=== PATIENT | female | born 1995 | race Two or more races ===

== ENCOUNTER 2021-09-01 11:15 | Emergency (ER) | payer OTHER ==
--- OUTSIDE RECORDS SUMMARY | 2021-09-01 11:18 | XMS REPORT | Continuity of Care Document ---
:1995 Author Organization [facility] t Address 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 Allergies, Adverse Reactions, Alerts Allergy Allergy Status Severity Reaction(s) Onset Inactive Treating Comm ents Source Name Type Date Date Clinician NO KNOWN Drug Active Univers ALLERGIE Class ity of S [facility] Social History Social Habit Start Date Stop Date Quantity Comments Source History of Cigarette Smoker Universi ty of tobacco use [facility] Sex Assigned At Universit y of [facility] Exposure to Not sure [place] of SARS-CoV-2 [facility] (event) [place] Tobacco use and 2020-08-11 2020-08-11 Never used Universit y of exposure 00:00:00 00:00:00 [facility] Smoking Status Start Date Stop Date Source Current every day smoker 2020-08-11 00:00:[address] [facility] Medications Ordered Filled Start Stop Current Ordering Indication Dosage Frequency Signature Comments Components Source Medication Medication Date Date Medication? Clinician (SIG) Name Name neomycin-po 2019-09 Yes [id number] 3[drp] Place 3 Univers lymyxin-hyd - Drops in ity of rocortisone 00:00: both ears [place] otic 00 4 (four) Medical solution times Branch daily. amoxicillin 2019-09 2020- No [id number] 1{tbl} Take 1 Univers -clavulanat 10-11 11-30 tablet by it y of e 875-125 00:00: 05:59 [place] per [place] :00 (two) Medical tablet times [place] daily for 7 days. busPIRone 5 2019-09 Yes 5mg Take 5 mg U nivers mg tablet 107 by mouth ity of 00:00: every 00 morning. Medical Branch medroxyPROG 2019-09 Yes 150mg 150 mg by Univers ESTERone 0-29 Intramuscu ity o f 150 mg/mL 00:00: [place]. [place] syringe [facility] SERTraline No 100mg Take 100 U nivers 100 mg 04-19 08- mg by ity of tablet 00:00: 04:59 mouth. [place] 00 :00 Medical [place] Vital Signs Vital Name Observation Time Observation Value Comments Source Systolic blood 2020-08-11 16:55:00 134 mm[Hg] Univer sity of pressure [facility] Diastolic blood 2020-08-11 16:55:00 88 mm[facility]Hg] [facility] 2020-08-11 16:55:00 68 /min [facility] Body temperature 2020-08-11 16:55:00 37.5 Roxy [facility] Respiratory rate 2020-08-11 16:55:00 18 /min [facility] Body height 2020-08-11 16:55:00 170.2 cm [facility] Body weight 2020-08-11 16:55:00 115.667 kg [facility] BMI 2020-08-11 16:55:00 39.94 kg/m2 [facility] Oxygen saturation in 2020-08-11 16:55:00 97 /min [facility] Arterial blood by [facility] Pulse oximetry Branch Procedures This patient has no known procedures. Encounters Start End Encounter Admission Attending Care Care Encounter Source Date/Time Date/Time Type Type Clinicians Facility Department ID 2020-08-11 2020-08-11 Outpatient Onofre R[facility]SELL [facility] [id number] [facility] 11:20:00 11:20:00 [facility] 2020-08-11 2020-08-11 Urgent Provider, [facility] Urgent Care [facility] [id number] [facility] 10:50:59 11:10:59 [facility] [id number] itxiomara schultz [place] [id number] Rakan as Ashley [phone] [place] [place] [address] One Results This patient has no known results.
[2021-09-01] MEDS ORDERED: NA CHLORIDE 0.9% 1,000 ML ONE (13:58)
[2021-09-01 14:02] LABS: Absolute Lymphocytes (CBC) 1.1 K/uL (0.7-4.9); Basophils % 0.4 % (0-1.3); Lymphocytes % 13.7 % (15.3-44.8); MPV 8.7 fL (7.6-11.3); RBC Red Blood Cell Count 4.56 M/uL (3.86-4.86)
[2021-09-01 14:08] LABS: Protime INR 1.1
[2021-09-01 14:26] LABS: ALT/SGPT 24 U/L (12-78); AST/SGOT 21 U/L (15-37); Albumin 4.1 g/dL (3.4-5.0); Alkaline Phosphatase 77 U/L (45-117); BUN Blood Urea Nitrogen 8 mg/dL (7-18); Bicarbonate 23 mmol/L (21-32); Bilirubin Direct 0.2 mg/dL (0-0.2); Bilirubin Total 0.7 mg/dL (0.2-1.0); Glucose Level 78 mg/dL (74-106); Potassium 3.9 mmol/L (3.5-5.1); Protein, Total 8.1 g/dL (6.4-8.2); Sodium Level 142 mmol/L (136-145)
[2021-09-01 15:16] LABS: Urine Blood 1+ (Negative); Urine Glucose Negative (Negative); Urine Protein Negative (Negative)
[2021-09-01 15:32] LABS: Urine Bacteria <20 /HPF (<20); Urine RBC NONE SEEN /HPF (NONE SEEN)
[2021-09-01 15:38] LABS: Barbiturates NEGATIVE (NEGATIVE); Benzodiazepines NEGATIVE (NEGATIVE); Cocaine NEGATIVE (NEGATIVE); METHAMPHETAM NEGATIVE (NEGATIVE); Methadone NEGATIVE (NEGATIVE); Opiates NEGATIVE (NEGATIVE); Phencyclidine NEGATIVE (NEGATIVE); THC Cannibis POSITIVE (NEGATIVE)
--- NOTE | 2021-09-01 17:16 | ER ---
Nurse's Notes [facility] Name: Izzy Gallardo Age: 26 yrs Sex: Female : 1995 Arrival Date: 09/01/2021 Time: 11:20 Bed 15 Private MD: Diagnosis: Benadryl overdose without toxicity Presentation: 09/01 12:06 Chief complaint: Patient states: Pt states his doctor dropped his antidepressant ss (Zoloft) about a week ago without tapering pt off and he believes it's having "severe effects" such as; nausea, headache, hands and feet feel heavy, pt states "I have the electric shock feeling" for a full week. States his side effects have progressively gotten worse. Pt now on testosterone, depo shot and another control he cant remember. Pt doctor changed his medicine to risperodone but does not know how much it is. Pt endorses taking "a hand full" of Benadryl today because he felt destructive but didn't have an entire plan for suicide. Coronavirus screen: Vaccine status: Patient reports receiving the 2nd dose of the covid vaccine. Ebola Screen: Patient negative for fever greater than or equal to 101.5 degrees Fahrenheit, and additional compatible Ebola Virus Disease symptoms Patient denies exposure to infectious person. Patient denies travel to an Ebola-affected area in the 21 days before illness onset. Initial Sepsis Screen: Does the patient meet any 2 criteria? No. Patient's initial sepsis screen is negative. Does the patient have a suspected source of infection? No. Patient's initial sepsis screen is negative. Risk Assessment: Do you want to hurt yourself or someone else? Patient reports no desire to harm self or others. Onset of symptoms was September 01, 2021. 12:06 Method Of Arrival: Ambulatory ss 12:06 Acuity: WENDY 3 ss 15:02 Acuity: WENDY 3 jd3 Triage Assessment: 12:19 General: Appears uncomfortable, unkempt, Behavior is calm, anxious. Pain: Denies pain. ss GI: Reports nausea. 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 - Social history:: Smoking status: Patient reports the use of cigarette tobacco products, smokes one-half pack cigarettes per day, Patient uses alcohol, only on a social basis. street drugs, marijuana. - Family history:: not pertinent. - Hospitalizations: : No recent hospitalization is reported. Screenin:26 Abuse screen: Denies threats or abuse. Nutritional screening: No deficits noted. al4 Tuberculosis screening: No symptoms or risk factors identified. Fall Risk No fall in past 12 months (0 pts). IV access (20 points). Ambulatory Aid- None/Bed Rest/Nurse Assist (0 pts). Gait- Normal/Bed Rest/Wheelchair (0 pts) Mental Status- Oriented to own ability (0 pts). Total Pizano Fall Scale indicates No Risk (0-24 pts). Assessment: 14:33 General: Appears in no apparent distress. comfortable, Behavior is calm, cooperative, al4 anxious, Reports feeling "sleepy". Patient denies suicidal thoughts at this time. Pain: Denies pain. Neuro: Level of Consciousness is awake, alert, Oriented to person, place, time, situation, Reports dizziness. Cardiovascular: Heart tones present Capillary refill < 3 seconds Patient's skin is warm and dry. Respiratory: Airway is patent Respiratory effort is even, unlabored, Respiratory pattern is regular, symmetrical, Breath sounds are clear bilaterally. GI: Abdomen is round non-distended, Bowel sounds present X 4 quads. Abd is soft and non tender X 4 quads. Reports nausea. : No signs and/or symptoms were reported regarding the genitourinary system. EENT: No signs and/or symptoms were reported regarding the EENT system. Derm: small cuts on right arm where patient states "I attempted to self harm this morning, but instantly regretted it." Patient continues to deny suicidal thoughts. Musculoskeletal: No signs and/or symptoms reported regarding the musculoskeletal system. 15:25 Reassessment: No changes from previously documented assessment. Patient and/or family al4 updated on plan of care and expected duration. Pain level reassessed. Patient is alert, oriented x 3, equal unlabored respirations, skin warm/dry/pink. Patient denies pain at this time. . 15:56 Reassessment: No changes from previously documented assessment. Patient denies pain at jd3 this time. patient reports feeling sleepy and wanting to rest. . 16:44 Reassessment: No changes from previously documented assessment. Patient and/or family al4 updated on plan of care and expected duration. Pain level reassessed. Patient is alert, oriented x 3, equal unlabored respirations, skin warm/dry/pink. Patient denies pain at this time. 17:00 Reassessment: Patient continues to deny suicidal ideations. Provider at bedside al4 discussing follow up and discharge options. . Vital Signs: 12:06 BP 140 / 83; Pulse 88; Resp 16; Temp 98.3; Pulse Ox 100% ; Weight 121.56 kg; Height 5 ss ft. 7 in. (170.18 cm); 14:52 BP 116 / 76; Pulse 62; Resp 18 S; Pulse Ox 100% on R/A; al4 15:30 BP 105 / 53; Pulse 70; Resp 18 S; Pulse Ox 100% on R/A; jd3 16:00 BP 112 / 52; Pulse 72; Resp 18 S; Pulse Ox 100% on R/A; al4 16:30 BP 114 / 45; Pulse 68; Resp 18; Pulse Ox 99% ; al4 17:05 BP 111 / 60; Pulse 73; Resp 18; Pulse Ox 100% ; al4 12:06 Body Mass Index 41.97 (121.56 kg, 170.18 cm) ss ED Course: 11:20 Patient arrived in ED. ds1 12:17 Triage completed. ss 13:13 Jacky Garibay MD is Attending Physician. rn 14:00 Inserted saline lock: 20 gauge in left antecubital area, using aseptic technique. Blood jd3 collected. 14:15 Fredrick Nevarez is Primary Nurse. al4 14:20 Arm band placed on. jd3 15:26 Patient has correct armband on for positive identification. Bed in low position. Call al4 light in reach. Side rails up X2. Pulse ox on. NIBP on. Door closed. Noise minimized. Lights dimmed. Head of bed elevated. 17:33 No provider procedures requiring assistance completed. IV discontinued, intact, al4 bleeding controlled, No redness/swelling at site. Pressure dressing applied. Administered Medications: 14:20 Drug: NS 0.9% 1000 ml Route: IV; Rate: 1000 ml; Site: left antecubital; jd3 15:20 Follow up: Response: No adverse reaction; IV Status: Completed infusion al4 Outcome: 17:15 Discharge ordered by . rn 17:33 Discharged to home ambulatory, with ride from Mother. al4 17:33 Condition: stable 17:33 Discharge instructions given to patient, Instructed on discharge instructions, follow up and referral plans. Demonstrated understanding of instructions, follow-up care. 17:36 Patient left the ED. al4 Signatures: Lynn Reeder ds1 Jacky Garibay MD MD rn Smirch, Shelby, RN RN ss Davies, Jonathon, RN RN jFredrick Squires al4 Corrections: (The following items were deleted from the chart) 14:55 14:33 Derm: No signs and/or symptoms reported regarding the dermatologic system. al4 al4 15:01 14:33 Derm: small cuts on right arm where patient states "I attempted to self harm this al4 morning, but instantly regretted it." al4 15:02 14:40 Acuity: WENDY 2 jd3 jd3 15:23 14:33 General: Appears in no apparent distress. comfortable, Behavior is calm, al4 cooperative, anxious, Reports feeling "sleepy" al4 15:58 15:56 Reassessment: No changes from previously documented assessment. Patient denies jd3 pain at this time. jd3 16:46 16:44 Reassessment: No changes from previously documented assessment. Patient and/or al4 family updated on plan of care and expected duration. Pain level reassessed. Patient is alert, oriented x 3, equal unlabored respirations, skin warm/dry/pink. al4
--- NOTE | 2021-09-01 17:16 | EDPHYS ---
Physician Documentation [facility] Name: Izzy Gallardo Age: 26 yrs Sex: Female : 1995 Arrival Date: 09/01/2021 Time: 11:20 Bed 15 Private MD: ED Physician Jacky Garibay HPI: 09/01 13:29 This 26 yrs old Female presents to ER via Ambulatory with complaints of Nausea, rn benadryl overdose. 13:29 The patient presents to the emergency department with nausea, vomiting. rn 13:30 The patient presents to the emergency department after a known overdose, that was rn intentional. Context: Method: the patient has a confirmed or suspected ingestion, Time: 3.5 hour(s) ago, the OD/poisoning occurred at at home, and was witnessed no one. Associated signs and symptoms: Pertinent positives: depression, dizziness, Pertinent negatives: auditory hallucinations, loss of consciousness, shortness of breath, visual hallucinations. Severity of symptoms: At their worst the symptoms were mild in the emergency department the symptoms have resolved. The patient has not experienced similar symptoms in the past. The patient has not recently seen a physician. Patient reports here because took too many Benadryl. States took unknown amount but less than a handful approximately 3.5 hours ago. Reports has been feeling bad after her doctor taking her off of Zoloft, so took some Benadryl to sleep. Denies that it was a suicide attempt. Denies any suicidal thoughts or intent to harm herself. Reports did not know if she needed fluids to feel better so came in. Denies coingestion. Reports palpitations and feeling dizzy.. 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 - Social history:: Smoking status: Patient reports the use of cigarette tobacco products, smokes one-half pack cigarettes per day, Patient uses alcohol, only on a social basis. street drugs, marijuana. - Family history:: not pertinent. - Hospitalizations: : No recent hospitalization is reported. ROS: 13:30 Constitutional: Negative for fever, chills, and weight loss, Eyes: Negative for injury, rn pain, redness, and discharge, ENT: Negative for injury, pain, and discharge, Neck: Negative for injury, pain, and swelling, Cardiovascular: Negative for chest pain, palpitations, and edema, Respiratory: Negative for shortness of breath, cough, wheezing, and pleuritic chest pain, Abdomen/GI: Negative for abdominal pain, diarrhea, and constipation, Back: Negative for injury and pain, : Negative for injury, bleeding, discharge, and swelling, MS/Extremity: Negative for injury and deformity, Skin: Negative for injury, rash, and discoloration, Neuro: Negative for headache, weakness, numbness, tingling, and seizure, Psych: Negative for suicide ideation, homicidal ideation, and hallucinations. Exam: 13:30 Constitutional: This is a well developed, well nourished patient who is awake, alert, rn and in no acute distress. Head/Face: Normocephalic, atraumatic. Eyes: Pupils equal round and reactive to light, extra-ocular motions intact. Periorbital areas with no swelling, redness, or edema. Cardiovascular: Regular rate and rhythm. No pulse deficits. Respiratory: No increased work of breathing, no retractions or nasal flaring. Abdomen/GI: Soft, non-tender Skin: Warm, dry with normal turgor. Normal color with no rashes, no lesions, and no evidence of cellulitis. MS/ Extremity: Pulses equal, no cyanosis. Neurovascular intact. Full, normal range of motion. Equal circumference. Neuro: Awake and alert, GCS 15, oriented to person, place, time, and situation. Cranial nerves II-XII grossly intact. Motor strength 5/5 in all extremities. Sensory grossly intact. Cerebellar exam normal. Psych: Awake, alert, with orientation to person, place and time. Vital Signs: 12:06 BP 140 / 83; Pulse 88; Resp 16; Temp 98.3; Pulse Ox 100% ; Weight 121.56 kg; Height 5 ss ft. 7 in. (170.18 cm); 14:52 BP 116 / 76; Pulse 62; Resp 18 S; Pulse Ox 100% on R/A; al4 15:30 BP 105 / 53; Pulse 70; Resp 18 S; Pulse Ox 100% on R/A; jd3 16:00 BP 112 / 52; Pulse 72; Resp 18 S; Pulse Ox 100% on R/A; al4 16:30 BP 114 / 45; Pulse 68; Resp 18; Pulse Ox 99% ; al4 17:05 BP 111 / 60; Pulse 73; Resp 18; Pulse Ox 100% ; al4 12:06 Body Mass Index 41.97 (121.56 kg, 170.18 cm) ss MDM: 13:13 Patient medically screened. rn 17:11 Differential diagnosis: Ingestion/exposure to benadryl. Data reviewed: vital signs, rn nurses notes, lab test result(s), EKG, and as a result, I will discharge patient. Counseling: I had a detailed discussion with the patient and/or guardian regarding: the historical points, exam findings, and any diagnostic results supporting the discharge/admit diagnosis, lab results, the need for outpatient follow up, to return to the emergency department if symptoms worsen or persist or if there are any questions or concerns that arise at home. Response to treatment: the patient's symptoms have markedly improved after treatment, and as a result, I will discharge patient. Special discussion: I discussed with the patient/guardian in detail that at this point there is no indication for admission to the hospital. It is understood, however, that if the symptoms persist or worsen the patient needs to return immediately for re-evaluation. 17:11 ED course: Pt feels much better, normal vitals, still denies suicidal ideation. Family rn feels safe taking patient home. . 09/01 11:36 Order name: Urine Microscopic Only; Complete Time: 15:42 rn 09/01 13:26 Order name: Acetaminophen; Complete Time: 15:32 rn 09/01 13:26 Order name: Basic Metabolic Panel; Complete Time: 15:32 rn 09/01 13:26 Order name: CBC with Diff; Complete Time: 15:32 rn 09/01 13:26 Order name: ETOH Level; Complete Time: 15:32 rn 09/01 13:26 Order name: Hepatic Function; Complete Time: 15:32 rn 09/01 13:26 Order name: PT-INR; Complete Time: 15:32 rn 09/01 13:26 Order name: Ptt, Activated; Complete Time: 15:32 rn 09/01 13:26 Order name: Salicylate; Complete Time: 15:32 rn 09/01 13:26 Order name: Urine Drug Screen; Complete Time: 15:42 rn 09/01 13:26 Order name: EKG; Complete Time: 13:27 rn 09/01 15:15 Order name: Urine Dipstick-Ancillary; Complete Time: 15:32 EDMS 09/01 15:21 Order name: Urine --Ancillary (enter results); Complete Time: 15:43 bd 09/01 11:36 Order name: Urine Dipstick-Ancillary (obtain specimen); Complete Time: 15:21 rn 09/01 11:36 Order name: Urine Test (obtain specimen); Complete Time: 15:21 rn 09/01 13:26 Order name: EKG - Nurse/Tech; Complete Time: 14:20 rn 09/01 13:26 Order name: IV Saline Lock; Complete Time: 13:57 rn 09/01 13:26 Order name: Labs collected and sent; Complete Time: 13:57 rn Administered Medications: 14:20 Drug: NS 0.9% 1000 ml Route: IV; Rate: 1000 ml; Site: left antecubital; jd3 15:20 Follow up: Response: No adverse reaction; IV Status: Completed infusion al4 Disposition Summary: 09/01/21 17:15 Discharge Ordered Location: Home rn Problem: new rn Symptoms: have improved rn Condition: Stable rn Diagnosis - Benadryl overdose without toxicity rn Followup: rn - With: Private Physician - When: As needed - Reason: Recheck today's complaints, Re-evaluation by your physician Discharge Instructions: - Discharge Summary Sheet rn - Intentional Drug Overdose rn Forms: - Medication Reconciliation Form rn - Thank You Letter rn - Antibiotic employment attorney - Prescription Opioid Use rn - Work release form al4 Signatures: Dispatcher [employer] EDWA Jacky Garibay MD MD rn Smirch, Shelby, RN RN ss Davies, Jonathon, RN RN jd3 Ledbetter, Alexis al4 Corrections: (The following items were deleted from the chart) 13:34 13:30 Constitutional: Negative for fever, chills, and weight loss, Eyes: Negative for rn injury, pain, redness, and discharge, ENT: Negative for injury, pain, and discharge, Neck: Negative for injury, pain, and swelling, Cardiovascular: Negative for chest pain, palpitations, and edema, Respiratory: Negative for shortness of breath, cough, wheezing, and pleuritic chest pain, Abdomen/GI: Negative for abdominal pain, diarrhea, and constipation, Back: Negative for injury and pain, : Negative for injury, bleeding, discharge, and swelling, MS/Extremity: Negative for injury and deformity, Skin: Negative for injury, rash, and discoloration, Neuro: Negative for headache, weakness, numbness, tingling, and seizure, rn 13:57 13:26 Suicide Screening ([place]) ordered. latosha al4
[2021-09-01 17:47] VITALS: TEMP 98.3
[2021-09-01 18:03] VITALS: BP 111/60; O2SAT 100
--- NOTE | 2021-09-02 12:28 | EKG ---
Test Date: 2021-09-01 Test Time: 14:03:22 Theatrical Variety Agent: DAIANA MEASUREMENT RESULTS: Intervals: Rate: 69 OK: 152 QRSD: 92 QT: 402 QTc: 430 [place]: P: 52 OK: 152 QRS: 71 T: 57 INTERPRETIVE STATEMENTS: Normal sinus rhythm Normal ECG No previous ECG available for comparison Electronically Signed On 09-02-21 12:25:51 CONSTRUCTION PROJECT ASSISTANT by Karson David
== END 2021-09-01 17:36 | disposition home or self-care (01) ==
LOC: ER 11:15
DX: T45.0X1A Poisoning by antiallergic and antiemetic drugs, accidental (unintentional), initial encounter (principal); F17.210 Nicotine dependence, cigarettes, uncomplicated
CPT/HCPCS: 93005; 85025; 80048; 36415; 80320; 80329 ×2; 81025; 85610; 80076; 85730; 80307; 96360; 99284; J7030; 81003; 81015